=== PATIENT | male | born 1975 | race Caucasian/White ===

== ENCOUNTER → 2016-11-28 | Outpatient (CLI) | payer SELFPAY ==
--- NOTE | 2016-11-28 16:57 | CT ---
EXAM DESCRIPTION: CT ABDOMEN AND PELVIS WITH CONTRAST CLINICAL HISTORY: Edema, unspecified COMPARISON: None Available. TECHNIQUE: CT of the abdomen and pelvis are performed during IV bolus administration of 100 mL of Isovue 300. Oral contrast media was not utilized. This exam was performed according to our departmental dose-optimization program, which includes automated exposure control, adjustment of the mA and/or kV according to patient size and/or use of iterative reconstruction technique. FINDINGS: The lung bases are clear with normal sized heart without infiltrate or effusion The upper abdomen is markedly abnormal with marked splenomegaly and extensive varices including splenorenal as well as distal esophageal varices. I suspect short gastric varices are present as well and there is minimal recanalization of the umbilical vein that is not significantly dilated. Enlargement of the left lobe of the liver and a small right lobe of the liver consistent with early changes of cirrhosis without significant cobblestoning or heterogeneity of the liver is noted with no focal hepatic mass is seen. The gallbladder is normally distended with a tiny stone in the dependent gallbladder neck without ductal dilation. Significant medial displacement of the left kidney by marked splenomegaly is evident with the spleen measuring is much is 22 cm in length. The unenhanced right and left kidneys are unremarkable without hydronephrosis and no adrenal abnormality or cystic or solid lesion is noted. No significant abdominal or pelvic ascites is seen. Large and small bowel caliber is normal. The retroperitoneum including the aorta and vena cava and the pelvic sidewalls are unremarkable. The bladder and prostate and seminal vesicles are unremarkable. No inguinal abnormality or hernia is noted. The anterior abdominal wall is unremarkable. Old moderate L1 superior endplate compression deformity with sclerosis of the vertebral body and milder similar changes at L2 are evident and suggests the possibility of old trauma. With the apparent prior compression deformity and secondary degenerative disc changes particularly at T12-L1 possibility of either a sclerotic infiltrative process or entity such as Paget's disease is thought unlikely. IMPRESSION: 1. Markedly abnormal upper abdomen with marked splenomegaly enlargement of the left lobe the liver and small right lobe consistent with changes of portal hypertension and early changes of cirrhosis. No evidence of ascites is seen in the portal vein and splenic vein appear patent. 2. Extensive left upper quadrant varices including splenorenal, short gastric, esophageal varices with patency and minimal recanalization of the umbilical vein also noted. 3. The spleen is enlarged to approximately 22 cm in length without focal mass identified. 4. Moderate L1 and milder L2 superior endplate compression deformities and Schmorl's node with degenerative disc changes at T12-L1 and moderate sclerosis of the L1 vertebral body, likely related to prior trauma and degenerative change and infiltrative process or an entity such as Paget's disease is thought unlikely. Correlation with any history of prior injury and previous evaluation is recommended. Is recommended. Electronically signed by: Jacques Lopez MD 11/28/2016 4:55 PM CDT
== END | disposition home or self-care (01) ==
LOC: CT 10:03
PROVIDERS: ATTEND Nurse Practitioner
DX: R60.9 Edema, unspecified (principal)